=== PATIENT | female | born 1985 | race Caucasian/White ===

== ENCOUNTER 2020-10-24 09:04 | Emergency (ER) | payer OTHER, MEDICAID ==
[~2020-10-24] VITALS: Ht 154.9 cm; Wt 145.2 kg
[~2020-10-24 09:04] MED LIST: ANAPROX DS550 MG PO; AUGMENTIN400 MG/51 PO; AURALGAN EAR DR14 ML OT; BIRTH CONTROL; DOXYCYCLINE 10100 MG PO; FLAGYL500 MG PO; FLEXERIL PO; HYDROCODON-ACE1 EAC7 PO; HYDROCODON-ACE1 EACH PO; HYDROCORTISONE3011 TP; IBUPROFEN 600600 M1 PO; IBUPROFEN 800800 MG PO; KEFLEX250 MG PO; KEFLEX500 MG; MEDROLDOSEPACK PO; NORCO 5-325 TA1 EACH PO; PREVACID 30MG C30 M1 PO; PROMETHAZINE-D120 ML PO; SIMVASTATIN20 MG PO; SPRINTEC1 EACH PO; TRAMADOL 50 MG50 MG PO; ULTRAM 50MG TAB50 MG PO; VENTOLIN HFA INH8 GM IH; VICODIN 5-5001 EACH; VICODIN 5-5001 EACH PO; XANAX 0.5 MG0.5 M1; XANAX XR1 MG PO; ZEGERID OTC 201 EACH PO
[2020-10-24] MEDS ORDERED: NORCO 5-325 TA1 EAC2 PO (10:28)
[2020-10-24 10:40] VITALS: BP 137/86
== END 2020-10-24 10:41 | disposition home or self-care (01) ==
LOC: M.ERS 09:04
DX: S93.691A Other sprain of right foot, initial encounter (principal); W01.0XXA Fall on same level from slipping, tripping and stumbling without subsequent striking against object, initial encounter; Y93.89 Activity, other specified; Y92.89 Other specified places as the place of occurrence of the external cause; Y99.8 Other external cause status

== ENCOUNTER 2021-12-03 17:56 | Emergency (ER) | payer OTHER, MEDICAID ==
[~2021-12-03] VITALS: Ht 154.9 cm; Wt 142.4 kg
[~2021-12-03 17:56] MED LIST changes: +NORCO 5-325 TA1 EAC2 PO
[2021-12-03] MEDS ORDERED: IBUPROFEN 800800 MG PO (19:16)
[2021-12-03 19:46] VITALS: BP 152/82
== END 2021-12-03 19:46 | disposition home or self-care (01) ==
LOC: M.ERS 17:56
DX: M79.671 Pain in right foot (principal)